=== PATIENT | female | born 1975 | race Caucasian/White ===

== ENCOUNTER 2016-10-18 12:39 | Emergency (ER) | payer MEDICAID, OTHER ==
[~2016-10-18] VITALS: Ht 167.6 cm; Wt 106.0 kg
[2016-10-18 12:46] VITALS: BP 150/97; PULSE 79; RESP 14; TEMP 98.1; O2SAT 100
[2016-10-18] MEDS ORDERED: ZOLO100T PO (13:15)
[2016-10-18] MEDS ORDERED: ARIP1TAB5 PO (13:15)
[2016-10-18] MEDS ORDERED: IBUP800T23 PO (13:29)
--- NOTE | 2016-10-18 13:29 | PD ---
HPI Chief Complaint: Pain: Acute or Chronic Time Seen by Provider: 13:22 Travel History International Travel<30 days: No Contact w/Intl Traveler<30days: No Traveled to known affect area: No History of Present Illness HPI 40-year-old [id number] female presents to the emergency room for evaluation of right wrist pain for the past month. Denies trauma or injury. Pain is localized to the distal wrist on the medial and lateral aspects. Pain is exacerbated with range of motion of the wrist, typing, and writing. She has been taking 500 mg Tylenol without significant relief in symptoms. Pain radiates into her hand. Patient has a follow-up with a primary care physician because she just moved down here does not have one in the area. PFSH Past Medical History Bipolar Disorder: Yes Depression: Yes Diminished Hearing: No Tetanus Vaccination: < 5 Years Influenza Vaccination: Yes ?: Not Past Surgical History Surgical History: No Previous Surgery Social History Alcohol Use: Yes (SOCIAL) Tobacco Use: Yes (04/01 PPD) Substance Use: No Allergies-Medications (Allergen,Severity, Reaction): Coded Allergies: Bactrim (Verified Allergy, Severe, Nausea/Vomiting, 10/18/16) Reported Meds & Prescriptions Reported Meds & Active Scripts Active Reported Abilify (Aripiprazole) 10 Mg Tab 10 Mg PO DAILY Zoloft (Sertraline HCl) 100 Mg Tab 100 Mg PO DAILY Review of Systems Except as stated in HPI: all other systems reviewed are Neg Physical Exam Narrative GENERAL: Well-nourished, well-developed female in no acute distress. Afebrile. Ambulatory. SKIN: Focused skin assessment warm/dry. No erythema or ecchymosis. HEAD: Normocephalic. EYES: No scleral icterus. No injection or drainage. NECK: Supple, trachea midline. No JVD or lymphadenopathy. CARDIOVASCULAR: Regular rate and rhythm without murmurs, gallops, or rubs. RESPIRATORY: Breath sounds equal bilaterally. No accessory muscle use. EXTREMITY: No bony tenderness to palpation of the right wrist. Full range of motion in all joints of the right upper extremity. No significant edema. Pain but no paresthesias during Phalen and Tinel tests. 2+ radial pulse. Radial, ulnar, and median nerves intact. Data Data Last Documented VS Vital Signs Date Time Temp Pulse Resp B/P Pulse Ox O2 Delivery O2 Flow Rate FiO2 10/18/16 13:13 10/18/16 12:46 98.1 79 14 100 Room Air Orders Splint Or Brace Apply/Monitor (10/18/16 13:20) [facility] Medical Decision Making Medical Screen Exam Complete: Yes Emergency Medical Condition: Yes Medical Record Reviewed: Yes Differential Diagnosis Carpal tunnel syndrome, tendinitis, muscle strain, sprain Narrative Course 40-year-old female presents to the emergency room for evaluation of right wrist pain for the past one month. No trauma or injury. History and physical exam are consistent with carpal tunnel syndrome. Patient treated conservatively with wrist splint and 800 mg Motrin. Told to follow-up with a primary care physician if conservative treatment fails. She understands and agrees to plan. Diagnosis Primary Impression: Carpal tunnel syndrome Qualified Code: G56.01 - Carpal tunnel syndrome of right wrist Referrals: Primary Care Physician Patient Instructions: Carpal Tunnel Syndrome (ED), General Instructions Additional Instructions: Rest and drink plenty of fluids. Take ibuprofen with food as directed, as needed for pain. Apply ice to the affected area for 20 minutes at a time, as needed for pain and swelling. Follow-up with a primary care physician. Med/Other Pt SpecificInfo: Prescription(s) given Disposition: 01 DISCHARGE HOME Condition: Stable Loni Shabazz Oct 18, 2016 13:29
== END 2016-10-18 13:51 | disposition home or self-care (01) ==
LOC: PHEFT 12:39
DX: G56.01 Carpal tunnel syndrome, right upper limb (principal); F17.200 Nicotine dependence, unspecified, uncomplicated; Z86.59 Personal history of other mental and behavioral disorders
CPT/HCPCS: 99283; L3908